=== PATIENT | female | born 1960 | race Hispanic/Latino ===

== ENCOUNTER 2019-09-15 09:54 | Emergency (ER) | payer BC ==
[2019-09-15] MEDS ORDERED: ONDANSETRON 4 MG/2 ML INJ IV ONE (11:17)
[2019-09-15] MEDS ORDERED: MORPHINE 4 MG/1 ML INJ IV ONE (11:17)
[2019-09-15] MEDS ORDERED: SODIUM CHLORIDE 0.9% 1000 ML 1,000 ML IV ONE ×2 (11:17→12:23)
[2019-09-15 12:03] LABS: Hematocrit 43.4 % (30.3-42.9); Hemoglobin 14.5 gm/dl (10.1-14.3); Mean Corpuscular HGB Conc 33 % (30-34); Mean Corpuscular Volume 90 fl (79-97); Platelet Count 217 K/mm3 (140-440); Red Blood Count 4.83 M/mm3 (3.65-5.03); Red Cell Distribution Width 13.2 % (13.2-15.2)
[2019-09-15 12:18] LABS: Alanine Aminotransferase 24 units/L (7-56); Albumin 3.3 g/dL (3.9-5); BUN/Creatinine Ratio 17; Blood Urea Nitrogen 15 mg/dL (7-17); Calcium 8.8 mg/dL (8.4-10.2); Hemolysis Index 18
--- NOTE | 2019-09-15 13:08 | Cat Scan Report ---
CT abdomen pelvis w con INDICATION: generalized abd pain, diarrhea. TECHNIQUE: All CT scans at this location are performed using the following dose modulation technique: Automated exposure control. CONTRAST: Omnipaque 300, 100 cc IV injection. COMPARISON: CT abdomen and pelvis 09/11/2014. CT ABDOMEN: Evaluation of the parenchymal organs demonstrates a 3 mm nonobstructing left renal stone at the upper pole. A benign-appearing right adrenal lesion measures 2.4 x 1.4 cm. : Demonstrates mild diffuse thickening, but no significant dilatation. A few noninflamed diverticula are greatest at the sigmoid colon. The appendix is unremarkable in appearance. A ventral hernia containing small bowel and a left abdominal wall hernia at the same level containing small bowel are both nonobstructing. A small fat-containing ventral hernia in the midline is seen maldonado perior to the umbilicus. CT PELVIS: Negative for pelvic mass, fluid or inflammation. IMPRESSION: 1. Mild diffuse colitis. 2. Noninflamed colonic diverticula basis. 3. 3 mm nonobstructing left renal stone. 4. Nonobstructing ventral and umbilical hernias. 5. Probable right adrenal adenoma not significantly changed. Signer Name: Monster Diallo MD Signed: 09/15/2019 1:04 PM Workstation Name: [id number]
[2019-09-15 13:40] LABS: Bilirubin,Urine NEG (Negative); Blood,Urine LG (Negative); Color,Urine Straw (Yellow); Mucus,Urine FEW /HPF; Protein,Urine <15 mg/dL mg/dL (Negative); Urobilinogen,Urine < 2.0 mg/dL (<2.0)
[2019-09-15 13:42] LABS: Total Cells Counted 100
[2019-09-15 13:43] LABS: Platelet Estimate Consistent w Auto; RBC Morphology Normal
--- NOTE | 2019-09-15 13:56 | Emergency Department Report ---
ED General Adult HPI - General Chief complaint: Abdominal Pain Stated complaint: DIARRHEA Time Seen by Provider: 09/15/19 10:43 Source: patient Mode of arrival: Ambulatory Limitations: No Limitations - History of Present Illness Initial comments: Patient is a 58-year-old female presents emergency room with complaints of diarrhea that began 4 days ago. She has associated generalized abdominal pain/body aches/fever. She denies any vomiting, chest pain, shortness of breath, hematochezia, hematemesis, melena, dysuria. Patient states that she has been taking Pepto-Bismol without much relief. She denies any sick contacts or recent travel. She has a past medical history of diverticulitis with perforation which led to a partial colectomy and ostomy which she had reversed. She also has abdominal surgical history of hysterectomy. She denies any a llergies to medications. Severity scale (0 -10): 8 - Related Data Home Medications Medication Instructions Recorded Confirmed Last Taken ALPRAZolam [Xanax TAB] 1 mg PO DAILY PRN 07/23/14 07/26/14 07/24/14 22:00 Previous Rx's Medication Instructions Recorded Last Taken Type HYDROcodone/APAP 5-325 [[place] 1 each PO Q6H PRN #15 tablet 09/13/14 Unknown Rx 5-325 mg TAB] levoFLOXacin [Levaquin TAB] 500 mg PO QDAY #10 tablet 09/13/14 Unknown Rx Ciprofloxacin HCl [Ciprofloxacin 500 mg PO BID 10 Days #20 tablet 09/15/19 Unknown Rx TAB] Hyoscyamine Subl [Levsin Sl 0.125 0.125 mg SL Q6HR PRN #10 tab 09/15/19 Unknown Rx TAB] Promethazine [Phenergan] 25 mg PO Q8HR PRN #10 tab 09/15/19 Unknown Rx metroNIDAZOLE [Flagyl] 500 mg PO BID 7 Days #14 tab 09/15/19 Unknown Rx Allergies Allergy/AdvReac Type Severity Reaction Status Date / Time No Known Allergies Allergy Verified 11/22/15 23:48 ED Review of Systems ROS: Stated complaint: DIARRHEA Other details as noted in HPI Comment: All other systems reviewed and negative ED Past Medical Hx - Past Medical History Hx Hypertension: No Hx Congestive Heart Failure: No Hx Diabetes: No Hx Psychiatric Treatment: Yes (ANXIETY) Hx Asthma: No Hx COPD: No Hx HIV: No - Surgical History Additional Surgical History: COLOSTOMY-DIVERTICULITIS, C-Secx1 - Social History Smoking Status: Never Smoker - Medications Home Medications: Home Medications Medication Instructions Recorded Confirmed Last Taken Type ALPRAZolam [Xanax TAB] 1 mg PO DAILY PRN 07/23/14 07/26/14 07/24/14 22:00 History HYDROcodone/APAP 5-325 [[place] 1 each PO Q6H PRN #15 tablet 09/13/14 Unknown Rx 5-325 mg TAB] levoFLOXacin [Levaquin TAB] 500 mg PO QDAY #10 tablet 09/13/14 Unknown Rx Ciprofloxacin HCl [Ciprofloxacin 500 mg PO BID 10 Days #20 tablet 09/15/19 Unknown Rx TAB] Hyoscyamine Subl [Levsin Sl 0.125 0.125 mg SL Q6HR PRN #10 tab 09/15/19 Unknown Rx TAB] Promethazine [Phenergan] 25 mg PO Q8HR PRN #10 tab 09/15/19 Unknown Rx metroNIDAZOLE [Flagyl] 500 mg PO BID 7 Days #14 tab 09/15/19 Unknown Rx ED Physical Exam - General Limitations: No Limitations General appearance: alert, in no apparent distress - Head Head exam: Present: atraumatic, normocephalic - Eye Eye exam: Present: normal appearance - ENT ENT exam: Present: mucous membranes dry (mildly) - Respiratory Respiratory exam: Present: normal lung sounds bilaterally. Absent: respiratory distress, wheezes, rales, rhonchi, stridor, chest wall tenderness, accessory mus carina use, decreased breath sounds, prolonged expiratory - Cardiovascular Cardiovascular Exam: Present: regular rate, normal rhythm, normal heart sounds. Absent: systolic murmur, diastolic murmur, rubs, gallop - GI/Abdominal GI/Abdominal exam: Present: soft, tenderness (generalized), normal bowel sounds, other (no peritoneal signs, small umbilical hernia easily reducible, no pain, healed midline abdominal surgical incision). Absent: distended, guarding, rebound, rigid - Neurological Exam Neurological exam: Present: alert, oriented X3 - Psychiatric Psychiatric exam: Present: normal affect, normal mood - Skin Skin exam: Present: warm, dry, intact ED Course Vital Signs 09/15/19 09/15/19 09/15/19 10:02 11:45 12:15 Temperature 98.3 F Pulse Rate 90 Respiratory 18 18 18 Rate Blood Pressure 114/70 O2 Sat by Pulse 94 Oximetry 09/15/19 15:09 Temperature 98.0 F Pulse Rate 83 Respiratory 20 Rate Blood Pressure 88/51 O2 Sat by Pulse 96 Oximetry ED Medical Decision Making - Lab Data Result diagrams: 09/15/19 11:39 09/15/19 11:39 Lab Results 09/15/19 09/15/19 09/15/19 Range/Units 11:39 11:39 13:12 WBC 6.1 (4.5-11.0) K/mm3 RBC 4.83 (3.65-5.03) M/mm3 Hgb 14.5 H (10.1-14.3) gm/dl Hct 43.4 H (30.3-42.9) % MCV 90 (79-97) fl MCH 30 (28-32) pg MCHC 33 (30-34) % RDW 13.2 (13.2-15.2) % Plt Count 217 (140-440) K/mm3 [place] % (Auto) Report Specialist Add Manual Diff Complete Total Counted 100 Seg Neuts % (Manual) 59.0 (40.0-70.0) % Band Neutrophils % 0 % Lymphocytes % (Manual) 25.0 (13.4-35.0) % Reactive Lymphs % (Man) 0 % Monocytes % (Manual) 13.0 H (0.0-7.3) % Eosinophils % (Manual) 1.0 (0.0-4.3) % Basophils % (Manual) 2.0 H (0.0-1.8) % Metamyelocytes % 0 % Myelocytes % 0 % Promyelocytes % 0 % Blast Cells % 0 % Nucleated RBC % Not Reportable Seg Neutrophils # Man 3.6 (1.8-7.7) K/mm3 Band Neutrophils # 0.0 K/mm3 Lymphocytes # (Manual) 1.5 (1.2-5.4) K/mm3 Abs React Lymphs (Man) 0.0 K/mm3 Monocytes # (Manual) 0.8 (0.0-0.8) K/mm3 Eosinophils # (Manual) 0.1 (0.0-0.4) K/mm3 Basophils # (Manual) 0.1 (0.0-0.1) K/mm3 Metamyelocytes # 0.0 K/mm3 Myelocytes # 0.0 K/mm3 Promyelocytes # 0.0 K/mm3 Blast Cells # 0.0 K/mm3 WBC Morphology Not Reportable Hypersegmented Neuts Not Reportable Hyposegmented Neuts Not Reportable Hypogranular Neuts Not Reportable Smudge Cells Not Reportable Toxic Granulation Not Reportable Toxic Vacuolation Not Reportable Dohle Bodies Not Reportable Pelger-Huet Anomaly Not Reportable Da Rods Not Reportable Platelet Estimate Consistent w auto Clumped Platelets Not Reportable Plt Clumps, EDTA Not Reportable Large Platelets Not Reportable Giant Platelets Not Reportable Platelet Satelliting Not Reportable Plt Morphology Comment Not Reportable RBC Morphology Normal Dimorphic RBCs Not Reportable Polychromasia Not Reportable Hypochromasia Not Reportable Poikilocytosis Not Reportable Anisocytosis Not Reportable Microcytosis Not Reportable Macrocytosis Not Reportable Spherocytes Not Reportable Pappenheimer Bodies Not Reportable Sickle Cells Not Reportable Target Cells Not Reportable Tear Drop Cells Not Reportable Ovalocytes Not Reportable Helmet Cells Not Reportable Garner-Culpeper Bodies Not Reportable [place] Rings Not Reportable Radha Cells Not Reportable Bite Cells Not Reportable Crenated Cell Not Reportable Elliptocytes Not Reportable Acanthocytes (Spur) Not Reportable Rouleaux Not Reportable Hemoglobin C Crystals Not Reportable Schistocytes Not Reportable Malaria parasites Not Reportable Sinan Bodies Not Reportable Hem Pathologist Commnt No Sodium 129 L (137-145) mmol/L Potassium 3.9 (3.6-5.0) mmol/L Chloride 94.2 L (98-107) mmol/L Carbon Dioxide 21 L (22-30) mmol/L Anion Gap 18 mmol/L BUN 15 (7-17) mg/dL Creatinine 0.9 (0.7-1.2) mg/dL Estimated GFR > 60 ml/min BUN/Creatinine Ratio 17 % Glucose 99 (65-100) mg/dL Calcium 8.8 (8.4-10.2) mg/dL Magnesium 2.30 (1.7-2.3) mg/dL Total Bilirubin 0.40 (0.1-1.2) mg/dL AST 27 (5-40) units/L ALT 24 (7-56) units/L Alkaline Phosphatase 66 (35-129) units/L Total Creatine Kinase 230 H (30-135) units/L Total Protein 6.8 (6.3-8.2) g/dL Albumin 3.3 L (3.9-5) g/dL Albumin/Globulin Ratio 0.9 % Lipase 37 (13-60) units/L Urine Color Straw (Yellow) Urine Turbidity Clear (Clear) Urine pH 6.0 (5.0-7.0) Ur Specific [place] 1.028 (1.003-1.030) Urine Protein <15 mg/dl (Negative) mg/dL Urine Glucose (UA) Neg (Negative) mg/dL Urine Ketones Neg (Negative) mg/dL Urine Blood Lg (Negative) Urine Nitrite Neg (Negative) Urine Bilirubin Neg (Negative) Urine Urobilinogen < 2.0 (<2.0) mg/dL Ur Leukocyte Esterase Lg (Negative) Urine WBC (Auto) 26.0 H (0.0-6.0) /HPF Urine RBC (Auto) 3.0 (0.0-6.0) /HPF U Epithel Cells (Auto) 1.0 (0-13.0) /HPF Urine Mucus Few /HPF - Radiology Data Radiology results: report reviewed CT abdomen pelvis w con INDICATION: generalized abd pain, diarrhea. TECHNIQUE: All CT scans at this location are performed using the following dose modulation technique: Automated exposure control. CONTRAST: Omnipaque 300, 100 cc IV injection. COMPARISON: CT abdomen and pelvis 09/11/2014. CT ABDOMEN: Evaluation of the parenchymal organs demonstrates a 3 mm non obstructing left renal stone at the upper pole. A benign-appearing right adrenal lesion measures 2.4 x 1.4 cm. : Demonstrates mild diffuse thickening, but no significant dilatation. A few noninflamed diverticula are greatest at the sigmoid colon. The appendix is unremarkable in appearance. A ventral hernia containing small bowel and a left abdominal wall hernia at the same level containing small bowel are both nonobstructing. A small fat-containing ventral hernia in the midline is seen superior to the umbilicus. CT PELVIS: Negative for pelvic mass, fluid or inflammation. IMPRESSION: 1. Mild diffuse colitis. 2. Noninflamed colonic diverticula basis. 3. 3 mm nonobstructing left renal stone. 4. Nonobstructing ventral and umbilical hernias. 5. Probable right adrenal adenoma not significantly changed. Signer Name: Monster Diallo MD Signed: 09/15/2019 1:04 PM Workstation Name: [id number] Transcribed By: ES Dictated By: Monster Diallo MD Electronically Authenticated By: Monster Diallo MD Signed Date/Time: 09/15/19 1304 DD/ 1257 TD/TT: - Medical Decision Making Patient is a 58-year-old female presents emergency room with complaints of diarrhea that began 4 days ago. She has associated generalized abdominal pain/body aches/fever. She denies any vomiting, chest pain, shortness of breath, hematochezia, hematemesis, melena, dysuria. Patient states that she has been taking Pepto-Bismol without much relief. She denies any sick contacts or recent travel. She has a past medical history of diverticulitis with perforation which led to a partial colectomy and ostomy which she had reversed. She also has abdominal surgical history of hysterectomy. She denies any allergies to medications. Vitals are stable. On exam: Dry mucous membranes, generalized abdominal tenderness to palpation, no guarding, no rebound, no peritoneal signs, no peritoneal signs, small umbilical hernia easily reducible, no pain, healed midline abdominal surgical incision. Labs show signs of dehydration. UA shows evidence of UTI. CT abdomen pelvis with IV contrast: 1. Mild diffuse colitis. 2. Noninflamed colonic diverticula basis. 3. 3 mm nonobstructing left renal stone. 4. Nonobstructing ventral and umbilical hernias. 5. Probable right adrenal adenoma not significantly changed. Patient given morphine, Zofran, 2 L of IV fluids and she was feeling much better and ready to go home. Discussed all results with patient and answered questions and discussed strict return precautions. Patient given prescription for Cipro, Flagyl, Levsin, Phenergan. Advised patient Please take medication as prescribed. Increase your fluid intake. Please eat a liquid diet over the next couple of days and slowly advance your diet as tolerated. Avoid anything sugary or greasy. Follow-up with a primary care doctor. Follow-up with a GI doctor. Return to the emergency room immediately for any new or worsening symptoms. - Differential Diagnosis Colitis, diverticulitis, perforation, obstruction, UTI, gastroenteritis Critical care attestation.: If time is entered above; I have spent that time in minutes in the direct care of this critically ill patient, excluding procedure time. ED Disposition Clinical Impression: Acute colitis, Nephrolithiasis Diarrhea Qualifiers: Diarrhea type: unspecified type Qualified Code(s): R19.7 - Diarrhea, unspeci fied UTI (urinary tract infection) Qualifiers: Urinary tract infection type: acute cystitis Hematuria presence: without hem aturia Qualified Code(s): N30.00 - Acute cystitis without hematuria Abdominal pain Qualifiers: Abdominal location: generalized Qualified Code(s): R10.84 - Generalized abdominal pain Disposition: TO HOME OR SELFCARE Is pt being admited?: No Does the pt Need Aspirin: No Condition: Stable Instructions: Urinary Tract Infection in Women (ED), Abdominal Pain (ED), Infe ctious Colitis (ED) Additional Instructions: Please take medication as prescribed. Increase your fluid intake. Please eat a liquid diet over the next couple of days and slowly advance your diet as tolerated. Avoid anything sugary or greasy. Follow-up with a primary care doctor. Follow-up with a GI doctor. Return to the emergency room immediately for any new or worsening symptoms. Prescriptions: Ciprofloxacin HCl [Ciprofloxacin TAB] 500 mg PO BID 10 Days #20 tablet metroNIDAZOLE [Flagyl] 500 mg PO BID 7 Days #14 tab Hyoscyamine Subl [Levsin Sl 0.125 TAB] 0.125 mg SL Q6HR PRN #10 tab PRN Reason: abdominal cramping Promethazine [Phenergan] 25 mg PO Q8HR PRN #10 tab PRN Reason: Nausea Referrals: JT MARTI MD [Primary Care Provider] - 2-3 Days [facility] [Provider Group] - 2-3 Days Time of Disposition: 14:08 Print Language: GERMAN
[2019-09-15 15:14] VITALS: BP 88/51
== END 2019-09-15 15:08 | disposition home or self-care (01) ==
LOC: ED 09:54
DX: K52.9 Noninfective gastroenteritis and colitis, unspecified (principal); N20.0 Calculus of kidney; N39.0 Urinary tract infection, site not specified; F41.9 Anxiety disorder, unspecified; Z98.890 Other specified postprocedural states; Z79.899 Other long term (current) drug therapy
CPT/HCPCS: 36415; 74177; 80053; 81001; 82550; 83690; 83735; 85007; 85025; 87086; 96361; 96374; 96375; 99284; J2270; J2405; J7030; Q9967; 87076

== ENCOUNTER 2020-01-08 17:58 | Emergency (ER) | payer BC ==
[2020-01-08 18:34] VITALS: BP 114/83
[2020-01-08 19:09] LABS: Basophils # (Auto) 0.1 K/mm3 (0.0-0.1); Basophils % (Auto) 0.9 % (0.0-1.8); Eosinophils # (Auto) 0.5 K/mm3 (0.0-0.4); Eosinophils % (Auto) 7.1 % (0.0-4.3); Hematocrit 44.9 % (30.3-42.9); Hemoglobin 15.1 gm/dl (10.1-14.3); Lymphocytes # (Auto) 2.1 K/mm3 (1.2-5.4); Lymphocytes % (Auto) 33.7 % (13.4-35.0); Mean Corpuscular HGB Conc 34 % (30-34); Mean Corpuscular Volume 94 fl (79-97); Monocytes # (Auto) 0.7 K/mm3 (0.0-0.8); Monocytes % (Auto) 10.6 % (0.0-7.3); Platelet Count 263 K/mm3 (140-440); Red Blood Count 4.79 M/mm3 (3.65-5.03); Red Cell Distribution Width 14.1 % (13.2-15.2)
[2020-01-08 19:22] LABS: Alanine Aminotransferase 15 units/L (7-56); Albumin 4.2 g/dL (3.9-5); BUN/Creatinine Ratio 11; Blood Urea Nitrogen 9 mg/dL (7-17); Calcium 9.5 mg/dL (8.4-10.2); Hemolysis Index 8
--- NOTE | 2020-01-09 02:23 | Emergency Department Report ---
ED General Adult HPI - General Chief complaint: Extremity Problem,Nontraumatic Stated complaint: SOB/ЕКАТЕРИНА/COUGH PUI?: No Time Seen by Provider: 01/09/20 02:14 Source: patient Mode of arrival: Wheelchair Limitations: No Limitations - History of Present Illness Initial comments: Patient is a 59-year-old female that presents emergency room with complaints of bilateral lower extremity edema and difficulty breathing at times. Patient states she has shortness of breath when walking. Patient states her shortness of breath completely resolves with rest and only happens when she is exerting herself. Patient states she has gained 12 pounds since . Patient states she has history of edema and is required diuretics. Patient states her primary care sent her here for evaluation. Patient states that her primary care did not want to give her a refill of Lasix because they have been doing you meetings for the last 2 months. Patient denies chest pain. Patient denies nausea vomiting. Patient denies abdominal pain. Patient states she has a cough at times. Patient denies recent travel. Patient denies recent international travel. Patient denies exposure to the novel coronavirus. Patient denies sick contacts. Patient denies fever and chills. Patient denies diarrhea. Patient denies coming in contact with anybody with symptoms of the novel coronavirus. -: Sudden Severity scale (0 -10): 7 - Related Data Home Medications Medication Instructions Recorded Confirmed Last Taken ALPRAZolam [Xanax TAB] 1 mg PO DAILY PRN 07/23/14 07/26/14 07/24/14 22:00 Previous Rx's Medication Instructions Recorded Last Taken Type HYDROcodone/APAP 5-325 [[place] 1 each PO Q6H PRN #15 tablet 09/13/14 Unknown Rx 5-325 mg TAB] levoFLOXacin [Levaquin TAB] 500 mg PO QDAY #10 tablet 09/13/14 Unknown Rx Ciprofloxacin HCl [Ciprofloxacin 500 mg PO BID 10 Days #20 tablet 09/15/19 Unknown Rx TAB] Hyoscyamine Subl [Levsin Sl 0.125 0.125 mg SL Q6HR PRN #10 tab 09/15/19 Unknown Rx TAB] Promethazine [Phenergan] 25 mg PO Q8HR PRN #10 tab 09/15/19 Unknown Rx metroNIDAZOLE [Flagyl] 500 mg PO BID 7 Days #14 tab 05/26/20 Unknown Rx Furosemide [Lasix] 20 mg PO QDAY 4 Days #4 tablet 01/09/20 Unknown Rx Allergies Allergy/AdvReac Type Severity Reaction Status Date / Time No Known Allergies Allergy Verified 11/22/15 23:48 ED Review of Systems ROS: Stated complaint: SOB/ЕКАТЕРИНА/COUGH Other details as noted in HPI Constitutional: denies: chills, fever Eyes: denies: eye pain, eye discharge, vision change ENT: denies: ear pain, throat pain Respiratory: cough, shortness of breath. denies: wheezing Cardiovascular: edema. denies: chest pain, palpitations Endocrine: no symptoms reported Gastrointestinal: denies: abdominal pain, nausea, diarrhea Genitourinary: denies: urgency, dysuria, discharge Musculoskeletal: denies: back pain, joint swelling, arthralgia Skin: denies: rash, lesions Neurological: denies: headache, weakness, paresthesias Psychiatric: denies: anxiety, depression Hematological/Lymphatic: denies: easy bleeding, easy bruising ED Past Medical Hx - Past Medical History Previous Medical History?: Yes Hx Hypertension: No Hx Congestive Heart Failure: No Hx Diabetes: No Hx Psychiatric Treatment: Yes (ANXIETY) Hx Asthma: No Hx COPD: No Hx HIV: No Additional medical history: diverticulitis - Surgical History Past Surgical History?: Yes Additional Surgical History: COLOSTOMY-DIVERTICULITIS, C-Secx1 - Family History Family history: no significant - Social History Smoking Status: Never Smoker Substance Use Type: None - Medications Home Medications: Home Medications Medication Instructions Recorded Confirmed Last Taken Type ALPRAZolam [Xanax TAB] 1 mg PO DAILY PRN 07/23/14 07/26/14 07/24/14 22:00 History HYDROcodone/APAP 5-325 [[place] 1 each PO Q6H PRN #15 tablet 09/13/14 Unknown Rx 5-325 mg TAB] levoFLOXacin [Levaquin TAB] 500 mg PO QDAY #10 tablet 09/13/14 Unknown Rx Ciprofloxacin HCl [Ciprofloxacin 500 mg PO BID 10 Days #20 tablet 09/15/19 Unknown Rx TAB] Hyoscyamine Subl [Levsin Sl 0.125 0.125 mg SL Q6HR PRN #10 tab 09/15/19 Unknown Rx TAB] Promethazine [Phenergan] 25 mg PO Q8HR PRN #10 tab 05/26/20 Unknown Rx metroNIDAZOLE [Flagyl] 500 mg PO BID 7 Days #14 tab 09/15/19 Unknown Rx Furosemide [Lasix] 20 mg PO QDAY 4 Days #4 tablet 01/09/20 Unknown Rx ED Physical Exam - General Limitations: No Limitations General appearance: alert, in no apparent distress - Head Head exam: Present: atraumatic, normocephalic - Eye Eye exam: Present: normal appearance. Absent: periorbital swelling, periorbital tenderness - ENT ENT exam: Present: mucous membranes moist - Neck Neck exam: Present: normal inspection - Respiratory Respiratory exam: Present: normal lung sounds bilaterally. Absent: respiratory distress, wheezes, rales, chest wall tenderness - Cardiovascular Cardiovascular Exam: Present: regular rate, normal rhythm. Absent: systolic murmur, diastolic murmur, rubs, gallop - GI/Abdominal GI/Abdominal exam: Present: soft, normal bowel sounds - Extremities Exam Extremities exam: Present: normal inspection, full ROM, normal capillary refill. Absent: tenderness, pedal edema, calf tenderness - Back Exam Back exam: Present: normal inspection - Neurological Exam Neurological exam: Present: alert, oriented X3 - Psychiatric Psychiatric exam: Present: normal affect, normal mood - Skin Skin exam: Present: warm, dry, intact, normal color. Absent: rash ED Course Vital Signs 01/08/20 18:31 Temperature 97.8 F Pulse Rate 78 Respiratory 20 Rate Blood Pressure 114/83 [Left] O2 Sat by Pulse 94 Oximetry - Reevaluation(s) Reevaluation #1: Patient ambulatory in the ER without difficulty. Patient asymptomatic during ambulation. 01/09/20 02:12 Reevaluation #2: I discussed all results and clinical findings with patient. I discussed plan of care with patient. Patient agrees with plan of care. Patient is stable for discharge. Patient will be discharged home. Patient given discharge instructions. Patient voiced understanding of discharge instructions. 01/09/20 03:45 ED Medical Decision Making - Lab Data Result diagrams: 01/08/20 18:41 01/08/20 18:41 - Radiology Data Radiology results: report reviewed interpreted by me: Chest x-ray: No pneumonia, no pneumothorax, no foreign body, no osseous findings, no acute findings CHEST 1 VIEW 01/09/2020 2:16 AM INDICATION / CLINICAL INFORMATION: edema. COMPARISON: None available. FINDINGS: SUPPORT DEVICES: None. HEART / MEDIASTINUM: No significant abnormality. LUNGS / PLEURA: No significant pulmonary or pleural abnormality. No pneumothorax. ADDITIONAL FINDINGS: No significant additional findings. IMPRESSION: 1. No acute findings. - Medical Decision Making Patient is a 59-year-old female that presents emergency room with complaints of bilateral lower extremity edema. Patient states she has had increasing weight due to water retention. Patient states her primary care sent her here for evaluation. Patient had labs done which were essentially unremarkable. Patient's BNP was negative. Patient had a chest x-ray which is negative for acute findings and CHF changes. Patient is stable for discharge. Patient is stable to follow-up as an outpatient. Patient not require inpatient or further emergency services. Patient given a diuretic. - Differential Diagnosis sob/ragland. chf. edema. Critical care attestation.: If time is entered above; I have spent that time in minutes in the direct care of this critically ill patient, excluding procedure time. ED Disposition Clinical Impression: RAG[place] (dyspnea on exertion), Cough Edema Qualifiers: Edema type: unspecified Qualified Code(s): R60.9 - Edema, unspecified Disposition: DC-01 TO HOME OR SELFCARE Is pt being admited?: No Does the pt Need Aspirin: No Condition: Stable Instructions: Heart Healthy Diet (ED), How to Take a Blood Pressure (ED), Leg Edema (ED), DASH Eating Plan (ED), Low Sodium Diet (ED) Additional Instructions: Patient to follow-up with primary care in 2 to 3 days. Patient to rest. Patient to increase water. Patient to take meds as directed. Patient to return to the ER if condition worsens, changes or new symptoms arise. Prescriptions: Furosemide [Lasix] 20 mg PO QDAY 4 Days #4 tablet Referrals: PRIMARY CARE, [Primary Care Provider] - 3-5 Days Time of Disposition: 03:41
--- NOTE | 2020-01-09 02:38 | XRay Report ---
CHEST 1 VIEW 01/09/2020 2:16 AM INDICATION / CLINICAL INFORMATION: edema. COMPARISON: None available. FINDINGS: SUPPORT DEVICES: None. HEART / MEDIASTINUM: No significant abnormality. LUNGS / PLEURA: No significant pulmonary or pleural abnormality. No pneumothorax. ADDITIONAL FINDINGS: No significant additional findings. IMPRESSION: 1. No acute findings. Signer Name: Shady Mendoza MD Signed: 01/09/2020 2:33 AM Workstation Name: [id number]
== END 2020-01-09 03:49 | disposition home or self-care (01) ==
LOC: ED 17:58
DX: R60.0 Localized edema (principal); R06.09 Other forms of dyspnea; R05 Cough
CPT/HCPCS: 36415; 71045; 80053; 83880; 85025